=== PATIENT | female | born 1935 | race Caucasian/White ===

== ENCOUNTER 2025-07-06 12:07 | Outpatient (CLI) | payer MEDICARE, SELFPAY ==
--- OUTSIDE RECORDS SUMMARY | 2025-04-04 06:00 | XMS_ITS ---
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 Ear Wax Removal. * Medical History: Objective: * Vitals: Assessment: Plan: * Treatment: * Billing Information: * Visit Code: * Procedure Codes: Care Plan Details* * Electronic signature of [id number] Provider on 07/08/2025 at 11:11 AM CDT Sign off status: Pending * Provider: 1 8204 Provider Date: 04/04/2025 Generated for Rocio santillan/Abena/eTlarrysmitting on: 11:11 AM CDT
--- OUTSIDE RECORDS SUMMARY | 2025-07-07 11:35 | XMS_ITS | Continuity of Care Document ---
Author Organization [facility] Phone Care Team Providers Care Speed Winder Name Role Phone GRACIELA GRANT Unavailable Unavailable GRACIELA GRANT Primary Attending Unavailable GRACIELA GRANT Admitting Unavailable CANDIS BUSBY Primary Care ALLERGIES AND ADVERSE REACTIONS ALLERGIES AND ADVERSE REACTIONS Code System Allergy Substance Adverse Reaction Date Reaction (Severity) Comment Status Reported By Updated By 7984 RXNorm PENICILLIN Adverse reaction to substance (Moderate) numbness active [id number] on July 07, 2025 12:58:[place] [address] RXNorm LEVAQUIN Adverse reaction to substance makes her feel funny active [id number] on July 07, 2025 12:58:51 PM UT FAMILY HISTORY RELATION: Father Status: Cause of : Congestive heart failure Age at : 65 SNOMED-CT Diagnosis Age At Onset [id number] Congestive heart failure RELATION: Mother Status: Cause of : Unknown procedure Age at : 85 SNOMED-CT Diagnosis Age At Onset [id number] Essential hypertension RESULTS Patient: REMA Jeronimo Date of : October [birth year] LABORATORY RESULTS ORDER 100: CBC AUTO W DIFF ( LOINC: 99521-3) ORDER DATE: July 07, 2025 12:57:00 PM UT Specimen Source: Whole Blood Specimen Type: Whole blood s ample PERFORMING LAB: [address] [id number] Result Comment: Final Result Date: July 07, 2025 1:26:00 PM UT (TECH: [place]) LOINC TEST FLAG RESULT REFERENCE RANGE UPDA JIMI BY 6690-2 Leukocytes [#/volume] in Blood by Automated count N 11.1 10^3/uL 4.5 10^3/uL - 11.5 10^3/uL July 07, 2025 1:26:00 PM UTC ([employer]) 789-8 Erythrocytes [#/volume] in Blood by Automated count N 4.35 10^6/uL 4.25 10^6/uL - 5.57 10^6/uL July 07, 2025 1:26:00 PM UTC ([employer]) 718-7 Hemoglobin [Mass/volume] in Blood N 12.4 g/dL 12.0 g/dL - 15.7 g/dL July 07, 2025 1:26:00 PM UTC ([employer]: [employer]) 98060-6 Hematocrit [Volume Fraction] of Blood N 38.6 % 36.0 % - 47.0 % July 07, 2025 1:26:00 PM UTC ([employer]) 787-2 Erythrocyte mean corpuscular volume [Entitic volume] by Automated count N 88.7 fl 80 fl - 95 fl July 07, 2025 1:26:00 PM UTC ([employer]: [employer]) 75372-1 Erythrocyte mean corpuscular hemoglobin [Entitic mass] in Blood from Fetus by Automated count N 28.5 pg 27.0 pg - 34.0 pg July 07, 2025 1:26:00 PM UTC ([employer]: [employer]) 69125-9 Erythrocyte mean corpuscular hemoglobin concentration [Mass/volume] in Blood from Fetus by Automated count N 32.1 g/dL 32.0 g/dL - 36.0 g/dL July 07, 2025 1:26:00 PM UTC ([employer]: [employer]) 01626-0 Platelets [#/volume] in Blood N 153 10^3/uL 150 10^3/uL - 450 10^3/uL July 07, 2025 1:26:00 PM UTC ([employer]: [employer]) 12886-3 Erythrocyte distribution width [Ratio] N 14.0 % 12.3 % - 15.1 % July 07, 2025 1:26:00 PM UTC (TECH: [employer]) 25856-8 Platelet mean volume [Entitic volume] in Blood by Automated count N 9.1 fl 7.4 fl - 10.4 fl July 07, 2025 1:26:00 PM UTC (TECH: [employer]) 94270-2 Granulocytes/100 leukocytes in Blood by Automated count H 86.1 % 40 % - 75 % July 07, 2025 1:26:00 PM UTC (TECH: [employer]) 736-9 Lymphocytes/100 leukocytes in Blood by Automated count L 4.3 % 15 % - 57 % July 07, 2025 1:26:00 PM UTC (TECH: [employer]) 5905-5 Monocytes/100 leukocytes in Blood by Automated count N 9.3 % 4.0 % - 12.0 % July 07, 2025 1:26:00 PM UTC (TECH: [employer]M) 713-8 Eosinophils/100 leukocytes in Blood by Automated count N 0.0 % 0.0 % - 4.0 % July 07, 2025 1:26:00 PM UTC (TECH: [employer]) 706-2 Basophils/100 leukocytes in Blood by Automated count N 0.1 % 0.0 % - 1.0 % July 07, 2025 1:26:00 PM UTC (TECH: [employer]) 76557-1 Immature granulocytes [#/volume] in Blood N 0.2 % 0.0 % - 0.8 % July 07, 2025 1:26:00 PM UTC (TECH: [employer]) 77606-7 Granulocytes [#/volume] in Blood by Automated count N 9.57 10^3/uL July 07, 2025 1:26:00 PM UTC (TECH: [employer]) 731-0 Lymphocytes [#/volume] in Blood by Automated count N 0.48 10^3/uL July 07, 2025 1:26:00 PM UTC (TECH: [employer]M) 742-7 Monocytes [#/volume] in Blood by Automated count N 1.03 10^3/uL July 07, 2025 1:26:00 PM UTC (TECH: [employer]) 711-2 Eosinophils [#/volume] in Blood by Automated count N 0.00 10^3/uL July 07, 2025 1:26:00 PM UTC (TECH: [employer]) 704-7 Basophils [#/volume] in Blood by Automated count N 0.01 10^3/uL July 07, 2025 1:26:00 PM UT (TECH: [employer]) 79520-5 Immature granulocytes [#/volume] in Blood N 0.02 10^3/uL July 07, 2025 1:26:00 PM UT (TECH: [employer]) 29504-0 Manual differential performed [Presence] in Blood N NO July 07, 2025 1:26:00 PM UTC (TECH: [employer]) ORDER 200: COMP METABOLIC PA BRANDEE (LOINC: 57232-5) ORDER DATE: July 07, 2025 12:57:00 PM UTC Specimen Source: Serum/Plasm a Specimen Type: Acellular blo od (serum or plasma) specimen PERFORMING LAB: [address] [id number] Result Comment: Final Result Date: July 07, 2025 1:38:00 PM UT (TECH: [employer]) LOINC TEST FLAG RESULT REFERENCE RANGE UPDA JIMI BY 2951-2 Sodium [Moles/volume ] in Serum or Plasma N 136 mmol/L 136 mmol/L - 145 mmol/L July 07, 2025 1:38:00 PM UTC (TECH: [employer]) 2823-3 Potassium [Moles/volume] in Serum or Plasma L 3.3 mmol/L 3.5 mmol/L - 5.1 mmol/L July 07, 2025 1:38:00 PM UT (TECH: [employer]) 2075-0 Chloride [Moles/volu me] in Serum or Plasma N 98 mmol/L 98 mmol/L - 107 mmol/L July 07, 2025 1:38:00 PM UTC (TECH: [employer]) 8-9 Carbon dioxide, tota l [Moles/volume] in Serum or Plasma N 29 mmol/L 21 mmol/L - 32 mmol/L July 07, 2025 1:38:00 PM UT (TECH: [employer]) 63577-5 Anion gap 3 in Serum or Plasma N 9.0 July 07, 2025 1:38:00 PM UT (TECH: [employer]) 2345-7 Glucose [Mass/volume ] in Serum or Plasma H 114 mg/dL 70 mg/dL - 110 mg/dL July 07, 2025 1:38:00 PM UTC (TECH: [employer]) 3094-0 Urea nitrogen [Mass/volume] in Serum or Plasma N 17 mg/dL 7 mg/dL - 18 mg/dL July 07, 2025 1:38:00 PM UT (TECH: [employer]) 2160-0 Creatinine [Mass/volume] in Serum or Plasma N 0.9 mg/dL 0.6 mg/dL - 1.0 mg/dL July 07, 2025 1:38:00 PM UTC (TECH: [employer]) 3097-3 Urea nitrogen/Creatinine [Mass Ratio] in Serum or Plasma N 18.9 9 - July 07, 2025 1:38:00 PM UTC (TECH: [employer]) 13513-0 Glomerular filtratio n rate/1.73 sq M.predicted by Creatinine-based formula (MDRD) N 61 mL/min >60 July 07, 2025 1:38:00 PM UT (TECH: [employer]) 65029-8 Osmolality of Serum or Plasma by calculated by sum of electrolytes N 286 mosm/kg 275 mosm/kg - 301 mosm/kg July 07, 2025 1:38:00 PM UT (TECH: [employer]) 2885-2 Protein [Mass/volume ] in Serum or Plasma N 7.3 g/dL 6.4 g/dL - 8.2 g/dL July 07, 2025 1:38:00 PM UT (TECH: [employer]) 1751-7 Albumin [Mass/volume ] in Serum or Plasma L 3.2 g/dL 3.4 g/dL - 5.0 g/dL July 07, 2025 1:38:00 PM UT (TECH: [employer]) 02788-2 Calcium [Mass/volume ] in Serum or Plasma N 8.9 mg/dL 8.5 mg/dL - 10.1 mg/dL July 07, 2025 1:38:00 PM UT (TECH: [employer]) 63051-4 Calcium [Mass/volume ] corrected for total protein in Serum or Plasma N 9.5 mg/dL 8.5 mg/dL - 10.1 mg/dL July 07, 2025 1:38:00 PM UT (TECH: [employer]) 1975-2 Bilirubin.total [Mass/volume] in Serum or Plasma N 0.7 mg/dL 0.4 mg/dL - 1.5 mg/dL July 07, 2025 1:38:00 PM UTC (TECH: [employer]) 1920-8 Aspartate aminotransferase [Enzymatic activity/volume] in Serum or Plasma N 18 U/L 15 U/L - 37 U/L July 07, 2025 1:38:00 PM UTC (TECH: [employer]) 1742-6 Alanine aminotransferase [Enzymatic activity/volume] in Serum or Plasma N 15 U/L 12 U/L - 78 U/L July 07, 2025 1:38:00 PM UTC (TECH: [employer]) 6768-6 Alkaline phosphatase [Enzymatic activity/volume] in Serum or Plasma N 56 U/L 53 U/L - 141 U/L July 07, 2025 1:38:00 PM UTC (TECH: [employer]) ORDER 300: UA AND MICRO/CULT IF INDICATED (LOINC: 31557-4) ORDER DATE: July 07, 2025 12:57:00 PM UTC Specimen Source: URINE Specimen Type: Urine specime n PERFORMING LAB: [address] [id number] Result Comment: Final Result Date: July 07, 2025 1:44:00 PM UTC (TECH: [employer]) LOINC TEST FLAG RESULT REFERENCE RANGE UPDA JIMI BY 5778-6 Color of Urine N yellow YELLOW Octob 2024 1:44:00 PM UTC (TECH: [employer]) 5767-9 Appearance of Urine N SL.HAZY CLEAR July 07, 2025 1:44:00 PM UTC (TECH: [employer]) 5792-7 Glucose [Mass/volume ] in Urine by Test strip N NORM NORMAL June 192024 1:44:00 PM UTC (TECH: [employer]) 57987-4 Bilirubin.total [Mass/volume] in Urine by Automated test strip N NEGATIVE NEGATIVE July 07, 2025 1:44:00 PM UTC (TECH: [employer]) 5797-6 Ketones [Mass/volume ] in Urine by Test strip N NEGATIVE NEGATIVE June 192024 1:44:00 PM UTC (TECH: [employer]) 2965-2 Specific gravity of Urine N 1.015 1.005 - 1.035 July 07, 2025 1:44:00 PM UTC (TECH: [employer]) 48849-1 Erythrocytes [#/volu me] in Urine by Automated test strip N 25 (1+) /mcL NEGATIVE July 07, 2025 1:44:00 PM UTC (TECH: [employer]) 66662-3 pH of Urine by Automated test strip N 6.00 5.0 - 7.5 July 07, 2025 1:44:00 PM UTC (TECH: [employer]) 65580-2 Protein [Presence] i n Urine by Test strip N 100 (2+) mg/dL NEGATIVE July 07, 2025 1:44:00 PM UTC (TECH: [employer]) 14393-2 Urobilinogen [Mass/volume] in Urine by Automated test strip N NORM NORMAL July 07, 2025 1:44:00 PM UTC (TECH: [employer]) 30727-9 Nitrate [Presence] i n Urine N NEGATIVE NEGATIVE July 07, 2025 1:44:00 PM UTC (TECH: [employer]) 34257-3 Leukocytes [#/volume ] in Urine by Test strip N 500 (2+) /mcL NEGATIVE June 192024 1:44:00 PM UTC (TECH: [employer]) 25399-9 Other elements in Ur ine sediment N YES July 07, 2025 1:44:00 PM UTC (TECH: [employer]) 34197-7 Microscopic observat ion [Identifier] in Urine sediment by Light microscopy N YES July 07, 2025 1:44:00 PM UTC (TECH: [employer]) 67941-5 Erythrocytes [#/area ] in Urine sediment by Microscopy high power field N 1-5 0-3 July 07, 2025 1:44:00 PM UTC (TECH: [employer]) 5821-4 Leukocytes [#/area] in Urine sediment by Microscopy high power field >30 NONE SEEN July 07, 2025 1:44:00 PM UTC (TECH: [employer]) 72092-7 Epithelial cells.squamous [#/area] in Urine sediment by Microscopy high power field N 5-10 NONE SEEN July 07, 2025 1:44:00 PM UTC (TECH: [employer]) 5769-5 Bacteria [#/area] in Urine sediment by Microscopy high power field N TRACE NONE SEEN July 07, 2025 1:44:00 PM UTC (TECH: [employer]) 90852-1 Epithelial cells.jono al [#/area] in Urine sediment by Microscopy high power field N OCCASIONAL NONE SEEN July 07 1:44:00 PM UT (TECH: JEANNIE) LABORATORY NARRATIVE RESULTS Information is not available RADIOLOGY RESULTS Information is not available PATHOLOGY NARRATIVE RESULTS Information is not available MICROBIOLOGY RESULTS No Micro Labs/Results Exist for Patient BLOOD ADMIN RESULTS Information is not available TREATMENT PLAN DISCHARGE MEDICATIONS Status RXNORM Medication Dose Route Frequency Dates Comments U pdated By Patient discharge medication information is not available. PATIENT OPEN ORDERS Code System Descripti on Frequency Occurrenc es Priority Category Start Date Ordering Physician Updated By 630-4 DENISHA Bacteria identifie d in Urine by Culture ONE TIME 0 Routine July 07, 2025 1:43:00 PM UT RUDY Gallagher MD DSRULE on July 07, 2025 1:43:00 PM UT SCHEDULED PROCEDURES Code System Description Status Scheduled Date Upd ated By Patient scheduled procedure information is not available. MEDICATIONS HOME MEDICATIONS Status RXNORM NDC Medication Dose Route Frequency Dates Comments Reported By Updated By Active [id number] 446016 05236 aspirin 81 mg capsule 0.0 ORAL Last Dose: [id number] on July 07, 2025 12:58:50 PM UT Active [employer]Te [employer] metoprolol succinate oral unknown 0.0 Last Dose: [id number] on July 07, 2025 12:58:51 PM UT DISCHARGE MEDICATIONS Status RXNORM NDC Medication Dose Route Frequency Dates Dis pense Data Comments Physician Updated By No Discharge Medication Info rmation Available INPATIENT MEDICATIONS Status RXNORM NDC Medication Dose Route Frequency Rat e Quantity Dates Indication Dispense Data Comments Physician Updated By Cody inued [id number] 3287 9754 201 cefTRIAXone (ROCEPHIN) 1 GM SOLR 1.0 GM ONE TIME ONLY Start: Octobe r 2024 1:29:0 0 PM UTC End: Octobe r 2024 1:29:0 0 PM UTC RUDY Gallagher MD INTERFAC ED on July 07, 2025 1:29:00 PM UT Discont inued [id number] 4143 0360 411 sodium chloride MINI-BAG PLUS 0.9 % 100 ML MBP KELSIE 100.0 ML INTRAV ENOUS ONE TIME ONLY Start: Octobe r 2024 1:29:0 0 PM UTC End: Octobe r 2024 1:29:0 0 PM UTC RUDY Gallagher MD INTERFAC ED on July 07, 2025 1:29:00 PM UTC Discont inued 9727229 2385 5531 911 KLOR-CON M20 20 MEQ TBCR 20.0 MEQ ORAL ONE TIME ONLY Start: Octobe r 2024 2:25:0 0 PM UTC End: Octobe r 2024 2:25:0 0 PM UTC RUDY Gallagher MD INTERFAC ED on July 07, 2025 2:24:00 PM UTC SOCIAL HISTORY SOCIAL HISTORY - Smoking Status SNOMED-CT Social History Element Description Effective Dates Offered Cessation Comment Updated By [id number] Current Tobacco smoking status Never Smoked [id number] on July 07, 2025 12:59:16 PM UTC SOCIAL HISTORY - Gender Sex: Female SOCIAL HISTORY - Status : status i nformation is not available Intention in Next Year: intention information is not available SOCIAL HISTORY - Assessments Code System Description Status Date Value of Assessment Updated By Comment Assessment Information is no t available SOCIAL HISTORY - [place] Affiliation [place] information is not av ailable SOCIAL HISTORY - Legal Sex Legal Sex information is not available SOCIAL HISTORY - Sexual Behavior Sexual Orientation Gender Identity SNOMED-CT Description SNO MED -CT Description Activity Level No of Partners Partner Type UpdatedBy Information is not available SOCIAL HISTORY - Occupation Occupation information is no t available VITAL SIGNS PATIENT VITAL SIGNS This section displays the mo st recent value for each vital sign as of July 07, 2025 3:35:02 PM UT Loinc Code Vital Sign Activity Date Result Updated By 8310-5 Body temperature July 07 12:37:00 PM UTC 98.3 [degF] 58435-3 Body weight Measured July 07, 2025 12:56:40 PM UTC 53.6 kg (118.0 lb) [id number] on July 07, 2025 12:56:40 PM UT 8462-4 Diastolic blood pressure July 07, 2025 2:32:00 PM UTC 64.0 mm[Hg] 8867-4 Heart rate July 07, 2025 2:32:00 PM UTC 69 /min 44433-2 Oxygen saturation in Arterial blood by Pulse oximetry July 07, 2025 2:32:00 PM UTC 98.0 % 9279-1 Respiratory rate July 07 2:32:00 PM UTC 18 /min 8480-6 Systolic blood pressure July 07, 2025 2:32:00 PM UTC 121.0 mm[Hg] PEDIATRIC GROWTH CHART - VITAL SIGNS This section displays Head C ircumference Percentile, Weight for Length Percentile and BMI Percentile Loinc Code Pediatric Measure Age (Months) Result Updat ed By No Pediatric Growth Chart Pe rcentile Information Available. HEALTH CONCERNS Problems Concern Status Health Concern problem infor mation not available. Smoking Status Status Years Used Consumed packs p er day Health Concern smoking histo ry information not available. Family History Concern Status Health Concern family histor y information not available. ENCOUNTERS ENCOUNTER INFORMATION Reason for Visit WEAKNESS Admission July 07, 2025 12:35:[address] [address] Discharge July 07, 2025 2:35:00 PM [facility] DISCHARGED TO HOME OR SELF CARE ENCOUNTER DIAGNOSES Notes information is not sho ilable. Code System Diagnosis Onset Date Diagnosis information is not available. ABSTRACT DIAGNOSES Code System Diagnosis Updated By Abatement Date Abstract Diagnosis informati on is not available. CARE TEAM Care Speed Winder Role GRACIELA GRANT Referring GRACIELA GRANT Primary Attending GRACIELA GRANT Admitting CANDISSHANEKA DASYulissa Primary Care CARE TEAM CARE computer field technician Role on Team Location Telecom Status Start Date End Petros e Updated By RUDY GARCIA Referring normal July 07, 2025 12:58:19 PM [facility] July 07, 2025 12:58:19 PM [facility] [id number] on July 07, 2025 12:58:19 PM [facility] RUDY Gallagher MD, MD Referring normal July 07, 2025 12:58:19 PM [facility] July 07, 2025 2:35:00 PM [facility] [id number] on July 07, 2025 12:58:19 PM [facility] RUDY GARCIA Attending normal July 07, 2025 12:58:18 PM [place] July 07, 2025 12:58:18 PM [facility] [id number] on July 07, 2025 12:58:19 PM [facility] RUDY Gallagher MD, MD Attending normal July 07, 2025 12:58:18 PM [facility] July 07, 2025 2:35:00 PM [facility] [id number] on July 07, 2025 12:58:19 PM [facility] RUDY GARCIA Admitting normal July 07, 2025 12:58:18 PM UTC July 07, 2025 12:58:18 PM UTC [id number] on July 07, 2025 12:58:19 PM UTC RUDY Gallagher MD, MD Admitting normal July 07, 2025 12:58:18 PM UTC July 07, 2025 2:35:00 PM UTC [id number] on July 07, 2025 12:58:19 PM UTC KEHINDE Virk MD, PHY PCP normal July 07, 2025 12:35:34 PM UTC July 07, 2025 2:35:00 PM UTC [id number] on July 07, 2025 12:58:19 PM UTC
--- OUTSIDE RECORDS SUMMARY | 2025-07-08 12:11 | XMS_ITS | Clinical Summary ---
Author Organization [facility] Address [address] [place] [address] Care Team Providers Care Wringer And Setter Name Role Phone Alexey Hough MD Primary Care Provider [phone] Allergies Active Allergy Reactions Criticality Noted Date Comments Levofloxacin Other - please docum ent in the comment field,Unknown - Patient states they do not know rxn details Medium 06/24/2020 Patient reports inability to walk and felt out of it Penicillins Other - please docum ent in the comment field,Unknown - Patient states they do not know rxn details Medium 09/06/2018 Facial numbness Medications cyanocobalamin (Vitamin B-12) 100 MCG tablet 09/06/2018 Acti ve Pain Reliever Extra Strength 500 MG tablet TAKE 2 TABLETS BY MOUTH EVERY 8 HOURS 05/25/2022 Active apixaban (Eliquis) 5 MG tablet Take 1 tablet by mouth 2 (two) times a day. 11/26/2020 Active calcium carbonate (Os-Evens) 1250 (500 Ca) MG tablet 09/06/2018 Active metoprolol succinate XL (Toprol-XL) 100 MG 24 hr tablet Take 0.5 tablets by mouth 1 (one) time each day. 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), bilater al 12/15/2022 Esotropia of both eyes 12/15/2022 Hypertropia of left eye 12/15/2022 Arthritis of right knee 05/26/2022 Elevated hemoglobin A1c 05/26/2022 Hypertension 05/26/2022 Status post total right knee replacement 022 Posterior vaginal wall prolapse 09/14/2018 Prolapse of anterior vaginal wall 09/14/2018 Prolapse of vaginal vault after hysterectomy Female bladder prolapse 09/06/2018 Resolved Problems Problem Noted Date Diagnosed Date Resolved Date Other localized visual field defect, bilateral 12/15/2022 06/09/2025 Postoperative pain 05/27/2022 Arthralgia of right knee 06/24/2020 Family History Medical History Relation Name Comments Esophageal cancer Brother 1 Prostate cancer Brother 2 Esophageal cancer Other 1 Prostate cancer Other 2 Relation Name Status Comments Brother 1 Brother 2 Other 1 Other 2 Social History Tobacco Use Types Packs/Day Years Used Date Smoking Tobacco: Never Tobacco Cessation:Counseling Given: Not Answered Alcohol Use Standard Drinks/Week Comments No 0 (1 standard drink = 0.6 oz pur e alcohol) Comments Unknown Sex and Gender Information Value Date Recorded Sex Assigned at Not on file Legal Sex Female 8:28 PM EDT Gender Identity Not on file Sexual Orientation Not on file Last Filed Vital Signs Vital Sign Reading Time Taken Comments Blood Pressure 168/87 01/26/2021 1:13 PM EDT Pulse 69 01/26/2021 1:13 PM EDT Temperature - - Respiratory Rate - - Oxygen Saturation - - Inhaled Oxygen Concentration - - Weight 65.8 kg (145 lb 1 oz) 01/26/2021 1:13 PM EDT Height 171.5 cm (5' 7.5 ) 01/26/2021 1:13 PM EDT Body Mass Index 22.38 01/26/2021 1:13 PM EDT Plan of Treatment Health Maintenance Due Date Last Done Comments [facility]-Bone Density Scan 1936 [facility]-Depression Screening 1936 [facility]-Medicare Annual Wellness (AWV) 1936 [facility]-Infant/Child/Adol SDOH Screenings 1936 [facility]- SDOH Screenings 1954 [facility]-Adult SDOH Screenings 1954 [facility]-DTaP,Tdap,and Td Vaccines (1 - Tdap) 1955 [facility]-Zoster Vaccines (1 of 2) 1986 [facility]-RSV Vaccine: 60+ Years or (1 - 1-dose 75+ series) 2011 [facility]-Pneumococcal Vaccine: 50+ Years (2 of 2 - PCV) 08/18/2021 08/18/2020 [id number] Vaccine ( - 2024- season) 2025 08/05/2022, 12/30/2021, 06/22/2021, Additional history exists [facility]-Influenza Vaccine (#1) 2025 06/03/2019 [facility]-Diabetes: Hemoglobin A1C Discontinued 10/29/2022, 05/13/2022 HPV Vaccines Aged Out No longer eligi ble based on patient's age to complete this topic [facility]-HIB Vaccines Aged Out No longer e ligible based on patient's age to complete this topic [facility]-Hepatitis A Vaccines Aged Out No longer eligible based on patient's age to complete this topic [facility]-IPV Vaccines Aged Out No longer e ligible based on patient's age to complete this topic [facility]-Rotavirus Vaccines Aged Out No lo nger eligible based on patient's age to complete this topic Insurance Care Teams Wringer And Setter Relationship Specialty Start Date End Date Alexey Hough MD [address] [place], [place] [id number] PCP - General 01/30/21
--- OUTSIDE RECORDS SUMMARY | 2025-07-08 12:11 | XMS_ITS | Clinical Summary ---
[facility] Address [address] [place] [address] Care Team Providers Care Assistant Store Manager Name Role Phone David Gongora MD Primary Care Provider Allergies Active Allergy Reactions Criticality Noted Date Comments Levofloxacin Mental Status Change Medium 05/13/2022 Patient reports inability to walk and felt out of it Penicillins Other (See Comments) Medium 05/13/2022 Facial numbness Medications Brgbndr-Yvdoxcluq-W itamin D (CALCIUM 1200+D3 PO) Take 1 tablet by mouth Daily. Active vitamin B-12 (CYANOCOBALAMIN) 1000 MCG tablet Take 1 tablet by mouth Daily. Active metoprolol succinate XL (TOPROL-XL) 100 MG 24 hr tablet Take 0.5 tablets by mouth Every Night. 10/13/19 23 Active acetaminophen (TYLENOL) 500 MG tablet Take 2 tablets by mouth Every 6 (Six) Hours As Needed for Mild Pain. Active traMADol (ULTRAM) 50 MG tabletIndications:S tatus post total right knee replacement Take 1 tablet by mouth Every 6 (Six) Hours As Needed for Moderate Pain. 03/10/20 23 Active oxyCODONE (Roxicodone) 5 MG immediate release tabletIndications:S tatus post total right knee replacement Take 1 tablet by mouth Every 4 (Four) Hours As Needed for Moderate Pain. 0 03/10/20 23 Active ondansetron (Zofran) 4 MG tablet Take 1 tablet by mouth Every 8 (Eight) Hours As Needed for Nausea or Vomiting. 03/10/20 Active lactobacillus acidophilus (RISAQUAD) capsule capsule Take 1 capsule by mouth Daily. 03/10/20 Active pantoprazole (PROTONIX) 40 MG EC tablet Take 1 tablet by mouth Every 12 (Twelve) Hours. 03/24/20 Active meloxicam (MOBIC) 15 MG tablet MELOXICAM 15 MG TABS Active Colace 100 MG capsule TAKE 1-2 CAPSULE DAILY NEEDED 03/08/20 Active Cholecalciferol (Vitamin D3) 50 MCG (2000 UT) tablet Take 1 tablet by mouth Daily. 03/08/20 Active traMADol (ULTRAM) 50 MG tabletIndications:H istory of arthroplasty of right knee Take 1 tablet by mouth Every 4 (Four) Hours As Needed for Moderate Pain. 60 tablet 05/22/20 Active apixaban (ELIQUIS) 2.5 MG tablet tabletIndications:A trial Fibrillation - requiring full anticoagulation Take 1 tablet by mouth 2 (Two) Times a Day. 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 No new symptoms to necessitate testing. Recent surgery went well from a cardiac standpoint. Okay to stop Eliquis for 3 days prior. Up to 5 days if necessary. Assessment & Plan (12/22/2022 1:21 PM EDT): Recent echo reviewed. Normal ejection fraction. No new symptoms to necessitate testing. Recent surgery went well from a cardiac standpoint. Okay to stop Eliquis for 3 days prior. Up to 5 days if necessary. Paroxysmal atrial fibrillation 12/22/2022 Assessment & Plan (04/01/2023 4:25 PM EDT): Infrequent episodes, in NSR today. Continue Eliquis and Metoprolol. Assessment & Plan (12/22/2022 1:22 PM EDT): Infrequent episodes. Continue current medication. Postoperative pain 05/27/2022 Arthritis of right knee 05/26/2022 Status post total right knee replacement 022 Hypertension 05/26/2022 Elevated hemoglobin A1c 05/26/2022 Immunizations Immunization Administration Dates Next Due Fluzone High-Dose 65+YRS 08/18/2020 Influenza, Unspecified 06/03/2019 Pneumococcal Polysaccharide (PPSV23) 08/18/2020 Family History Medical History Relation Name Comments Heart disease Father Heart disease Mother Relation Name Status Comments Brother 1 three Alive Brother 2 three Father Mother Social History Tobacco Use Types Packs/Day Years Used Date Smoking Tobacco: Never Smokeless Tobacco: Never Tobacco Cessation:Counseling Given: No Alcohol Use Standard Drinks/Week Comments Never 0 (1 standard drink = 0.6 oz pur e alcohol) [facility] Utilities Answer Date Recorded In the past 12 months has [employer], gas, oil, or water [employer] threatened to shut off services in your home? No 08/10/2024 AUDIT-C Answer Date Recorded Q1: How often do you have a drink containing alcohol? Never 08/10/2024 Q2: How many drinks containi ng alcohol do you have on a typical day when you are drinking? Patient does not drink Q3: How often do you have si x or more drinks on one occasion? Never 08/10/2024 Exercise Vital Sign Answer Date Recorde d On average, how many days pe r week do you engage in moderate to strenuous exercise (like a brisk walk)? 0 days 08/10/2024 On average, how many minutes do you engage in exercise at this level? 0 min 08/10/2024 Hunger Vital Sign Answer Date Recorded Within the past 12 months, y ou worried that your food would run out before you got the money to buy more. Never true 08/10/20 24 Within the past 12 months, t he food you bought just didn't last and you didn't have money to get more. Never true 08/10/2024 PRAPARE - Transportation Answer Date Re corded In the past 12 months, has l ack of transportation kept you from medical appointments or from getting medications? No 07/21 In the past 12 months, has l ack of transportation kept you from meetings, work, or from getting things needed for daily living? No 08/10/2024 Abuse Screen Answer Date Recorded Feels Unsafe at Home or Work/School no 08/10/2024 Feels Threatened by Someone no 07/21 Does Anyone Try to Keep You From Having Contact with Others or Doing Things Outside Your Home? no 08/10/2024 Physical Signs of Abuse Present no 08/10/2024 Housing Stability Answer Date Recorded Current Living Arrangements home 07/21 Potentially Unsafe Housing Conditions none 08/10/2024 Family and Community Support Answer Petros e Recorded If for any reason you need h elp with day-to-day activities such as bathing, preparing meals, shopping, managing finances, etc., do you get the help you need? I get all the help I need 08/10/2024 Lonely or Isolated Not on file 08/10/2024 Employment Answer Date Recorded Do you want help finding or keeping work or a job? I do not need or want help 08/10/2024 Disabilities Answer Date Recorded Difficulty Concentrating, Remembering or Making Decisions no 08/10/2024 Difficulty Managing Errands Independently yes 08/10/2024 Education Answer Date Recorded Do you want help with school or training? For example, starting or completing job training or getting a high school diploma, GED or equivalent No 08/10/2024 Preferred Language Serbian 08/10/2024 Comments No Sex and Gender Information Value Date Recorded Sex Assigned at Not on file Legal Sex Female 10:06 AM EDT Gender Identity Not on file Sexual Orientation Not on file Last Filed Vital Signs Vital Sign Reading Time Taken Comments Blood Pressure 126/71 08/12/2024 12:30 PM EST Pulse 74 08/12/2024 12:30 PM EST Temperature 36.2 C (97.1 F) 08/12/2024 12:30 PM EST Respiratory Rate 16 08/12/2024 12:30 PM EST Oxygen Saturation 98% 08/12/2024 12:30 PM EST Inhaled Oxygen Concentration - - Weight 56.7 kg (125 lb) 08/11/2024 11:36 AM EST Height 170.2 cm (5' 7 ) 08/11/2024 11:36 AM EST Body Mass Index 19.58 08/11/2024 11:36 AM EST Plan of Treatment Health Maintenance Due Date Last Done Comments TDAP/TD VACCINES (1 - Tdap) 1955 ZOSTER VACCINE (1 of 2) 1986 RSV Vaccine - Adults (1 - 1- dose 75+ series) 2011 Pneumococcal Vaccine 50+ (2 of 2 - PCV) 08/18/2021 08/18/2020 ANNUAL WELLNESS VISIT 04/19/2022 INFLUENZA VACCINE 04/19/2025 07/19/2024, , 08/18/2020, Additional history exists COVID-19 Vaccine (8 - Pfizer risk 2023-) 05/20/2025 06/07/2024, 08/04/2023, 08/05/2022, Additional history exists DXA SCAN 06/13/2026 06/13/2024 Medical Devices Implanted Type [employer] Head Device Identifier Shelf Expiration Date Model / Serial / Lot Dev Contrl Tiss Stratafix Spiral Pdo Bidir 1 [id number] - [id number] Implanted:Qty : 1 on 05/26/2022 by Cameron Soto MD at [facility] Implant Right: Knee [employer] J [employer] J 02/16/2027 [id number] / / [id number] Cmt Bone Simplex/P Full Dose 10/Pk - [id number] Implanted:Qty : 2 on 05/26/2022 by Cameron Soto MD at [facility] Implant Right: Knee [employer] W[employer] 08/31/2024 [id number] / / [id number] Pat Triath Asym X3 03k31hy - [id number] Implanted:Qty : 1 on 05/26/2022 by Cameron Soto MD at [facility] Implant Right: Knee [employer] [id number] 03/29/2027 [id number] / / [id number] Comp Fem Triath Ps Cmt No3 Rt - [id number] Implanted:Qty : 1 on 05/26/2022 by Cameron Soto MD at [facility] Implant Right: Knee [employer] [id number] 02/25/2026 [id number] / / [id number] Insrt Tib/Kn Triath Ps A/Poly Sz4 9mm - [id number] Implanted:Qty : 1 on 05/26/2022 by Cameron Soto MD at [facility] Implant Right: Knee [employer] W[employer] [id number] 07/02/2024 [id number] / / [id number] Totl Kn Med Demand Vicky - [id number] Implanted:Qty : 1 on 05/26/2022 by Cameron Soto MD at [facility] Implant [employer] CAPKNTOTLME [id number] / / Dev Contrl Tiss Stratafix Spiral Pdo Bidir 1 [id number] - [id number] Implanted:Qty : 1 on 12/29/2022 by Cameron Soto MD at [facility] Implant Right: Knee [employer] J [employer] J 08/18/2027 [id number] / / [id number] Insrt Tib/Kn Triathlon Condy/Stbl A/Poly Sz4 13mm - [id number] Implanted:Qty : 1 on 12/29/2022 by Cameron Soto MD at [facility] Implant Right: Knee [employer] 05/18/2027 [id number] / / [id number] Comp Fem Triath Cr No3 Rt - [id number] Implanted:Qty : 1 on 12/29/2022 by Cameron Soto MD at [facility] Implant Right: Knee [employer] 10/25/2027 [id number] / / [id number] Cmt Bone Simplex/P Full Dose 10/Pk - [id number] Implanted:Qty : 3 on 12/29/2022 by Cameron Soto MD at [facility] Implant Right: Knee [employer] 05/19/2025 [id number] / / [id number] Cmt Bone Simplex/P Full Dose 10/Pk - [id number] Implanted:Qty : 1 on 12/29/2022 by Cameron Soto MD at [facility] Implant Right: Knee [employer] 05/19/2025 [id number] / / [id number] Dev Contrl Tiss Stratafix Spiral Pdo Bidir 1 [id number] - [id number] Implanted:Qty : 1 on 03/09/2023 by Cameron Soto MD at [facility] Implant Right: Knee [employer] JOSTIN [id number] 06/18/2027 [id number] / / [id number] Cmt Bone Simplex/P Tmycin Fdos 10pk - [id number] Implanted:Qty : 1 on 03/09/2023 by Cameron Soto MD at [facility] Implant Right: Knee [employer] [id number] 02/17/2024 [id number] / / [id number] Cmt Bone Simplex/P Tmycin Fdos 10pk - [id number] Implanted:Qty : 1 on 03/09/2023 by Cameron Soto MD at [facility] Implant Right: Knee [employer] 06/18/2024 [id number] / / [id number] Cmt Bone Simplex/P Tmycin Fdos 10pk - [id number] Implanted:Qty : 1 on 03/09/2023 by Cameron Soto MD at [facility] Implant Right: Knee [employer] 06/18/2024 [id number] / / [id number] Cmt Bone Simplex/P Tmycin Fdos 10pk - [id number] Implanted:Qty : 1 on 03/09/2023 by Cameron Soto MD at [facility] Implant Right: Knee [employer] 06/18/2024 [id number] / / [id number] Aug Cone Tib/Kn Triathlon Rev Symm Szb - [id number] Implanted:Qty : 1 on 03/09/2023 by Cameron Soto MD at [facility] Implant Right: Knee [employer] 11/03/2027 [id number] / / [id number] Baseplt Tib Triath Ts No4 - [id number] Implanted:Qty : 1 on 03/09/2023 by Cameron Soto MD at [facility] Implant Right: Knee [employer] W[employer] 10/27/2027 [id number] / / [id number] Stem Fem Triath Cmt 53o31ze - [id number] Implanted:Qty : 1 on 03/09/2023 by Cameron Soto MD at [facility] Implant Right: Knee [employer] W[employer] 01/10/2028 [id number] / / [id number] Ext Stem Triath Kn Totl Cocr Flut 69n17co - [id number] Implanted:Qty : 1 on 03/09/2023 by Cameron Soto MD at [facility] Implant Right: Knee [employer] 09/27/2027 [id number] / / [id number] Aug Fem/Kn Triathlon Totlstbl Dist Sz3 10mm Rt - [id number] Implanted:Qty : 1 on 03/09/2023 by Cameron Soto MD at [facility] Implant Right: Knee [employer] W[employer] [id number] 06/18/2023 [id number] / / [id number] Comp Fem Triath Ts Sz3 Rt - [id number] Implanted:Qty : 1 on 03/09/2023 by Cameron Soto MD at [facility] Implant Right: Knee [employer] WIL [id number] 02/16/2028 [id number] / / [id number] Cone Aug Fem/Kn Triathlon Ts Ctr Lj7kxp2 Rt - [id number] Implanted:Qty : 1 on 03/09/2023 by Cameron Soto MD at [facility] Implant Right: Knee [employer] W[employer] [id number] 08/16/2026 [id number] / / [id number] Aug Fem/Kn Triathlon Totlstbl Dist Sz3 10mm Rt - [id number] Implanted:Qty : 1 on 03/09/2023 by Cameron Soto MD at [facility] Implant Right: Knee [employer] [id number] 05/19/2027 [id number] / / [id number] Aug Fem/Kn Triathlon Rev Post Sz3 5mm - [id number] Implanted:Qty : 1 on 03/09/2023 by Cameron Soto MD at [facility] Implant Right: Knee [employer] WIL [id number] 12/20/2026 [id number] / / [id number] Ext Stem Triath Kn Totl Cocr Flut 11l03ay - [id number] Implanted:Qty : 1 on 03/09/2023 by Cameron Soto MD at [facility] Implant Right: Knee [employer] [id number] 09/23/2027 [id number] / / [id number] Aug Fem/Kn Triathlon Rev Post Sz3 5mm - [id number] Implanted:Qty : 1 on 03/09/2023 by Cameron Soto MD at [facility] Implant Right: Knee [employer] W[employer] [id number] 10/27/2026 [id number] / / [id number] Stem Fem Triath Cmt 40r15wm - [id number] Implanted:Qty : 1 on 03/09/2023 by Cameron Soto MD at [facility] Implant Right: Knee [employer] W[employer] [id number] 11/04/2027 [id number] / / [id number] Plug Bone Restr/Cmt W/Hndl Univ 30mm Adal - [id number] - [id number] Implanted:Qty : 1 on 03/09/2023 by Cameron Soto MD at [facility] Implant Right: Knee [employer] WIL [id number] 09/27/2027 [id number] / [id number] / [id number] Plug Bone Restr/Cmt W/Hndl Univ 24mm - [id number] - [id number] Implanted:Qty : 1 on 03/09/2023 by Cameron Soto MD at [facility] Implant Right: Knee [employer] WIL [id number] 05/10/2027 [id number] / [id number] / [id number] Apr Tib/Kn Triath /2blck Ll/Rm Sz4 10mm - [id number] Implanted:Qty : 1 on 03/09/2023 by Cameron Soto MD at [facility] Implant Right: Knee [employer] WIL [id number] 12/06/2027 [id number] / / [id number] Apr Tib/Kn Triath /lck Rl/Lm Sz4 10mm - [id number] Implanted:Qty : 1 on 03/09/2023 by Cameron Soto MD at [facility] Implant Right: Knee [employer] WIL [id number] 08/04/2027 [id number] / / [id number] Insrt Tib Triath X3 Totl Stbl Sz4 13 - [id number] Implanted:Qty : 1 on 03/09/2023 by Cameron Soto MD at [facility] Implant Right: Knee [employer] WIL [id number] 01/05/2028 [id number] / / [id number] Explanted Type [employer] Head Device Identifier Shelf Expiration Date Model / Serial / Lot Peg Fem Fix Triathlon Dist Mod Pk/2 - [id number] Explanted:Qty: 1 on 05/26/2022 by Cameron Soto MD at [facility] Implant Right: Knee [employer] WIL [id number] 05/03/2027 [id number] / / [id number] Insurance [employer] PPO Advance Directives Documents on File Type Date Recorded 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 LIVING WILL - SCAN 05/30/2022 2:51 PM VEGA NG WILL, BHLEX, * CPR (Attempt to Resuscitate) (Latest Code Status on File) Date Activated Date Inactivated Comments 08/10/2024 2:30 PM 08/12/2024 3:18 PM Question Answer Comments Code Status (Patient has no pulse and is not breathing): CPR (Attempt to Resuscitate) Medical Interventions (Patie nt has pulse or is breathing): Full Support Level Of Support Discussed With: Patient * CPR (Attempt to Resuscitate) Date Activated Date Inactivated Comments 03/09/2023 3:55 PM 03/10/2023 3:20 PM Question Answer Comments Code Status (Patient has no pulse and is not breathing): CPR (Attempt to Resuscitate) Medical Interventions (Patie nt has pulse or is breathing): Full Level Of Support Discussed With: Patient * CPR (Attempt to Resuscitate) Date Activated Date Inactivated Comments 12/29/2022 3:43 PM 01/04/2023 2:09 PM Question Answer Comments Code Status (Patient has no pulse and is not breathing): CPR (Attempt to Resuscitate) Medical Interventions (Patie nt has pulse or is breathing): Full Level Of Support Discussed With: Patient * CPR (Attempt to Resuscitate) Date Activated Date Inactivated Comments 05/26/2022 3:24 PM 05/27/2022 3:35 PM Question Answer Comments Code Status (Patient has no pulse and is not breathing): CPR (Attempt to Resuscitate) Medical Interventions (Patie nt has pulse or is breathing): Full Level Of Support Discussed With: Patient Care Teams Assistant Store Manager Relationship Specialty Start Date End Date David Gongora MD PCP - General Emergency Medicine 05/13/22
--- OUTSIDE RECORDS SUMMARY | 2025-07-08 12:11 | XMS_ITS | Clinical Summary ---
Author Organization [facility] Address [address] [place] [address] Phone Care Team Providers Care Linoleum Tile Layer Name Role Phone Elliot Sanchez MD [ ] Conditions or Problems Problem Name Problem Code Onset Date Status Entry Date Provider Comment Standard Description Annotate Paroxysmal atrial fib 803864475 (SNOMED CT) Active Megan Quijano Paroxysmal atrial flutter Knee, right, subsequent encounter(s), infection/infl ammatory reaction due to internal joint prosthesis T84.53xD (ICD-10-CM) Active Megan Quijano Infection and inflammatory reaction due to internal right knee prosthesis, subsequent encounter Cellulitis of RLE 644989609 (SNOMED CT) Active Megan Quijano Cellulitis of lower limb Benign Essential Hypertension 97423881 (SNOMED CT) Active Megan Quijano Benign hypertension Medications Medication Instructions Start Date Stop Date Generic Name [facility] [place]NOTE 2] Provider TRIAMCINOLONE ACETONIDE 0.1 % CREA Apply 1 a small amount to skin twice a day triamcinolone acetonide [id number] Elliot Sanchez MD CEPHALEXIN 250 MG/5ML SUSR Take Take 10 ml QID by mouth as directed cephalexin 03112446838 Elliot Sanchez MD AMOXICILLIN 500 MG CAPS Take 1 capsule by mouth three times a day amoxicillin 30173888172 Elliot Sanchez MD AMOXICILLIN 500 MG CAPS Take 1 capsule by mouth three times a day amoxicillin 58198053808 Elliot Sanchez MD DOXYCYCLINE HYCLATE 100 MG CAPS 100 mg, Oral, 2 Times Daily doxycycline hyclate 36013538150 Mavis Shepherd MELOXICAM 15 MG TABS 15 mg, Oral, Daily meloxicam 47285283160 Mavis Shepherd ERTAPENEM SODIUM 1 GM SOLR 1gm q 24hrs x 6wks [employer] [facility] [phone] as of 01/17 ertapenem 13741729767 Abi Yen NYSTATIN 098767 UNIT/ML SUSP Take 5 ml by mouth four times a day nystatin 03025349942 Bryan Pyle MD ERTAPENEM SODIUM 1 GM SOLR 1gm q 24hrs x 6wks [employer] [facility] [phone] as of 01/17 ertapenem 11735342533 Abi Yen MELOXICAM 15 MG TABS TAKE 1 TABLET BY MOUTH EVERY DAY meloxicam 21386812718 Alicia Fu COLACE 100 MG CAPS TAKE 1 TO 2 CAPSULES DAILY NEEDED docusate sodium 46400861336 Alicia Mando ERTAPENEM SODIUM 1 GM SOLR 1gm q 24hrs x 6wks [facility] [place]. [phone] ertapenem 01090425257 Abi Yen ELIQUIS 5 MG TABS TAKE 1 TABLET BY MOUTH TWICE DAILY apixaban 56909169880 Brooklyn Garcia METOPROLOL SUCCINATE ER 100 MG [id number] TAKE 1/2 TABLET BY MOUTH EVERY DAY metoprolol succinate 25294594285 Brooklyn Garcia COLACE 100 MG CAPS TAKE 1 TO 2 CAPSULES DAILY NEEDED docusate sodium 48858659287 Brooklyn Garcia OXYCODONE HCL 5 MG TABS TAKE 1 TABLET BY MOUTH EVERY 4 TO 6 HOURS FOR MODERATE PAIN oxycodone 11540523921 Brooklyn Garcia TRAMADOL HCL 50 MG TABS TAKE 2 TABLETS BY MOUTH EVERY 6 HOURS FOR BREAK THROUGH PAIN tramadol 83552553197 Brooklyn Garcia ONDANSETRON HCL 4 MG TABS TAKE 1 TABLET BY MOUTH EVERY 6 HOURS NEEDED FOR NAUSEA ondansetron hcl 48837210253 Brooklyn Garcia MELOXICAM 15 MG TABS TAKE 1 TABLET BY MOUTH EVERY DAY meloxicam 99677708554 Brooklyn Garcia Lactobacillus acidophilus unspecified unspecified 1 capsule, Oral, 2 Times Daily lactobacillus acidophilus Brooklyn Garcia ACETAMINOPHEN 500 MG TABS 1,000 mg, Oral, Every 6 Hours PRN acetaminophen 39995718402 Brooklyn Garcia CALCIUM 500/D 500-5 MG-MCG TABS 1 tablet, Oral, Daily calcium carbonate-vitami n d3 55344426778 Brooklyn Garcia VITAMIN B-12 1000 MCG TABS 1,000 mcg, Oral, Daily cyanocobalamin (vitamin b-12) 60233078103 Brooklyn Garcia Medications Administered No information available. Allergies, Adverse Reactions, Alerts Allergy Name Reaction Description Start Date Severity Statu s Provider PENICILLINS Facial numbness Moderate Active Oracio weinerdon PAULAAQRAUL mental status change -inability to walk Moderate Active Brooklyn Jose Results Date Name Value Unit Range Flag Description External Other: Patient ameya al update - Email Push, formerly [facility] ... PAT E-MAIL [email or web address] patient's e-mail address External Other: Patient ameya magallon update - [facility]Status, [facility] ... PATPORTALPIN Active This faustina l be used to establish a PIN number for patients to register in the Patient Portal. Office Visit: Office Visit:r m 8 VAPE_USE Never Tobacco smok ing status Chart Maintenance: Updated H H labs 01/25/23 LYMPHS % 30.7 % Lymphocytes/ 100 leukocytes in Blood by Automated count PMN % 47.0 % Neutrophils/1 00 leukocytes in Blood by Automated count Chart Maintenance: Lab updat e 02/09/23 PLATELETS 259 10*3/mm3 Platelets [#/volume] in Blood by Automated count HCT 29.4 % Hematocrit [V olume Fraction] of Blood by Automated count HGB 9.1 g/dL Hemoglobin [Mass/volume] in Blood RBC 3.54 10*6/mm3 Erythrocytes [#/volume] in Blood by Automated count WBC 5.2 10*3/mm3 Leukocytes [#/volume] in Blood by Automated count BILI TOTAL 0.3 mg/dL Bilirubin. total [Mass/volume] in Serum or Plasma SGOT (AST) 11 U/L Aspartate aminotransferase [Enzymatic activity/volume] in Serum or Plasma SGPT (ALT) 14 U/L Alanine aminotransferase [Enzymatic activity/volume] in Serum or Plasma ALK PHOS 89 U/L Alkaline bird sphatase [Enzymatic activity/volume] in Blood CREATININE 0.8 mg/dL Creatinine [Mass/volume] in Serum or Plasma BUN 12 mg/dL Urea nitrogen [Mass/volume] in Serum or Plasma CALCIUM 8.6 mg/dL Calcium [Moles/volume] in Serum or Plasma POTASSIUM 3.7 mmol/L Potassium [Moles/volume] in Serum or Plasma SODIUM 138 mmol/L Sodium [Moles/volume] in Serum or Plasma GLUCOSE SER 107 mg/dL Glucose [Mass/volume] in Serum or Plasma Office Visit: Office Visit: 8 ORALTOBACUSE Never Tobacco smoking status SMOK STATUS Never smoker Tobacco smoking status Office Visit: Office Visit:[facility] 9 MEDS REVIEW Done Documenta tion of current medications (procedure) Lab Report: SEDIMENTATION RA TE ESR 13 mm/h 0-30 Erythrocyte sedimentation rate by Westergren method Lab Report: C-REACTIVE PROTE IN CRP 0.80 mg/dL 0.00-0.50 H C reactive protein [Mass/volume] in Serum or Plasma Plan of Care Type Date Detail Pending order Sedimentation Ra te (ESR) Pending order C- reactive prot ein Pending order C- reactive prot ein Pending order Sedimentation Ra te (ESR) Pending order C- reactive prot ein Pending order Sedimentation Ra te (ESR) Pending order C- reactive prot ein Pending order Sedimentation Ra te (ESR) Pending order CMP Pending order CBC w/o Differen tial Pending order Sedimentation Ra te (ESR) Pending order CMP Pending order CBC w/o Differen tial Pending order Sedimentation Ra te (ESR) Pending order Continue IV anti biotics Pending order CMP Pending order CBC w/o Differen tial Pending order Sedimentation Ra te (ESR) Procedures Code Procedure Name Date Entry Date CPT-27020 Sedimentation Rate (ESR) 202 11/29/07 CPT-20333 C- reactive protein CPT-38757 C- reactive protein CPT-06264 Sedimentation Rate (ESR) 202 11/26/10 CPT-09637 CMP CPT-58516 CBC w/o Differential CPT-46150 Sedimentation Rate (ESR) 202 11/21/16 CPT-44386 CMP CPT-31152 CBC w/o Differential CPT-89281 Sedimentation Rate (ESR) 202 11/21/09 CPT-ca Continue IV antibiotics 2022 CPT-25110 CMP CPT-63428 CBC w/o Differential CPT-95959 Sedimentation Rate (ESR) 202 11/22/03 Vital Signs Date Name Value Unit Description BMI (Body Mass Index) 20.52 kg/m2 Bod y Mass Index (Ratio) Body Temperature 98 [degF] temperat ure E&M BP Diastolic 82 mm[Hg] blood pressu re, diastolic BP Systolic 118 mm[Hg] blood pressur e, systolic Heart Rate 60 /min pulse rate Height 67 [in_us] height E&M Respiratory Rate 16 /min respirat ory rate E&M Weight Measured 131 [lb_av] weight E& M Weight Measured 131 [lb_av] weight E& M Immunizations No information available. Advance Directives Directive Description Start Date HEALTHCARE SURROGATE POWER OF INTERACTIVE MEDIA DESIGNER LIVING WILL ON FILE
--- OUTSIDE RECORDS SUMMARY | 2025-07-08 12:12 | XMS_ITS | Referral Summary ---
Author Organization [employer] ([place], [place], [place], [place]) Address [address] [place] [address] Care Team Providers Care Bike Assembler Name Role Phone Unavailable Primary Care Provider Unavailabl e Social History Tobacco Use Types Packs/Day Years Used Date Smoking Tobacco: Never Assessed Comments Unknown Sex and Gender Information Value Date Recorded Sex Assigned at Not on file Legal Sex Female 4:12 PM CDT Gender Identity Not on file Sexual Orientation Not on file Plan of Treatment Not on file Insurance [facility] MEDIC[facility]VANTAGE
--- OUTSIDE RECORDS SUMMARY | 2025-07-08 12:12 | XMS_ITS | Encounter Summary ---
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, implants and grafts, initial encounter (HCC) Social History Tobacco Use Types Packs/Day Years Used Date Smoking Tobacco: Never Assessed Comments Unknown Sex and Gender Information Value Date Recorded Sex Assigned at Not on file Legal Sex Female 4:12 PM CDT Gender Identity Not on file Sexual Orientation Not on file documented as of this encounter Plan of Treatment Not on file documented as of this encounter Procedures Procedure Name Priority Date/Time Associated Diagnosis Comments [facility] DIFFERENTIAL, BODY FLUID Routine 12/17/2022 3:18 PM EDT Pain in right knee 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, implants and grafts, initial encounter (HCC) AFB CULTURE AND STAIN Routine 12/17/2022 3:18 PM EDT Pain in right knee 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, implants and grafts, initial encounter (HCC) FUNGUS CULTURE W/LEAH OR JUSTYNA INK Routine 12/17/2022 3:18 PM EDT Pain in right knee 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, implants and grafts, initial encounter (HCC) ANAEROBIC CULTURE, EXTENDED (P.ACNES) Routine 12/17/2022 3:18 PM EDT Pain in right knee 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, implants and grafts, initial encounter (HCC) BODY FLUID CRYSTALS Routine 12/17/2022 3 :18 PM EDT Pain in right knee 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, implants and grafts, initial encounter (HCC) BODY FLUID CULTURE + GRAM STAIN Routine 12/17/2022 3:18 PM EDT Pain in right knee 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, implants and grafts, initial encounter (HCC) BODY FLUID CELL COUNT WITH DIFFERENTIAL Routine 12/17/2022 3:18 PM EDT Pain in right knee 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, implants and grafts, initial encounter (HCC) documented in this encounter Results * DIFFERENTIAL, BODY FLUID (12/17/2022 3:18 PM EDT) Neutrophils Fluid 90 0 - 25 % 12/17/2022 8:03 PM EDT [facility] Monocytes Fluid 10 0 - 65 % 8:03 PM EDT [facility] Body Fluid SYNOVIAL PART / Unknown 12/17/2022 3:18 PM EDT 12/17/2022 7:59 PM EDT us Cameron Soto MD BODY FLUIDS AND STOOLS ORDERABLE S Final Result [facility] [address] [phone] * AFB Culture And Stain (12/17/2022 3:18 PM EDT) Result No Acid Fast Bacilli isolated at 6 weeks 01/29/2023 8:00 AM EDT [facility] AFB Smear No acid fast bacilli seen 01/29/2023 8:00 AM EDT [facility] Synovial Fluid STRUCTURE OF RIGHT KNEE REGION / Unknown 12/17/2022 3:18 PM EDT 12/18/2022 7:44 AM EDT us Cameron Soto MD MICROBIOLOGY - GENERAL ORDERABLE S Final Result Performing Organization Address City/[facility]/ZIP Co de Phone Number [facility] [address] [place] [address], [facility] [phone] * Anaerobic Culture, Extended (P.acnes) (12/17/2022 3:18 PM EDT) Result No anaerobic growth at 14 days. No Cutibacterium acnes (formerly Propionibacterium acnes) isolated 01/03/2023 7:23 AM EDT [facility] Synovial Fluid STRUCTURE OF RIGHT KNEE REGION / Unknown 12/17/2022 3:18 PM EDT 12/18/2022 7:44 AM EDT us Cameron Soto MD MICROBIOLOGY - GENERAL ORDERABLE S Final Result Performing Organization Address [facility] Co de Phone Number [facility] [address] [place] [address], [facility] [phone] * Fungus Culture W/LEAH Or Justyna Ink (12/17/2022 3:18 PM EDT) Result No fungus isolated at 6 weeks. 01/29/2023 8:00 AM EDT [facility] LEAH Prep No fungal elements seen 01/29/2023 8:00 AM EDT [facility] Synovial Fluid STRUCTURE OF RIGHT KNEE REGION / Unknown 12/17/2022 3:18 PM EDT 12/18/2022 7:44 AM EDT us Cameron Soto MD MICROBIOLOGY - GENERAL ORDERABLE S Final Result Performing Organization Address City/[facility]/ZIP Co de Phone Number [facility] [address] [place] [address], [facility] [phone] * Body Fluid Culture + Gram Stain (12/17/2022 3:18 PM EDT) Result No growth 12/21/2022 8:59 AM EDT [facility] Gram Stain Result Moderate WBCs 12/21/2022 8:59 AM EDT [facility] Gram Stain Result No organisms seen 12/21/2022 8:59 AM EDT [facility] Synovial Fluid STRUCTURE OF RIGHT KNEE REGION / Unknown 12/17/2022 3:18 PM EDT 12/18/2022 7:44 AM EDT Narrative [facility] - 12/21/2022 8:59 AM EDT us Cameron Soto MD MICROBIOLOGY - GENERAL ORDERABLE S Final Result [facility] [address] [phone] * Body fluid crystals (12/17/2022 3:18 PM EDT) BODY FLUID TYPE Synovial 8:00 PM EDT [facility] Ca Phos Sakina, UA Absent Absent 12/17/2022 8:00 PM EDT [facility] Monosodium Urate Absent Absent 12/17/2022 8:00 PM EDT [facility] Synovial Fluid SYNOVIAL PART / Unknown 12/17/2022 3:18 PM EDT 12/17/2022 7:59 PM EDT us Cameron Soto MD BODY FLUIDS AND STOOLS ORDERABLE S Final Result [facility] [address] [phone] * (ABNORMAL) Body fluid cell count with differential (12/17/2022 3:18 PM EDT) Appearance Cloudy(A) Clear 12/17/2022 8:03 PM EDT [facility] Color Yellow 12/17/2022 8:03 PM EDT [facility] BODY FLUID TYPE Synovial 8:03 PM EDT [facility] Auto WBC/Nucleated Cells BF 37,588 0 - 30 u/L 12/17/2022 8:03 PM EDT [facility] Comment: Please refer to specific WBC/Nucleated Cell Count Body Fluid reference ranges below: For Pleural: 0-1000 Peritoneal: 0-1000 Pericardial:0-1000 Synovial: 0-200 Auto RBC BF 9,000 0 - 30 u/L 12/17/2022 8:03 PM EDT [facility] Comment: Please refer to specific RBC Cell Count Body Fluid reference ranges below: Pleural: 0-10,000 Peritoneal: 0-10,000 Pericardial:0-10,000 Synovial:0-30 Body Fluid SYNOVIAL PART / Unknown 12/17/2022 3:18 PM EDT 12/17/2022 7:59 PM EDT Narrative [facility] - 12/17/2022 8:03 PM EDT There is normally no readily obtainable pleural, peritoneal and pericardial fluid, hence normal elements for these potential fluids are not defined. 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
--- OUTSIDE RECORDS SUMMARY | 2025-07-08 12:12 | XMS_ITS | Clinical Summary ---
Author Organization [employer] ([place], [place], [place], [place]) Address [address] [place] [address] Care Team Providers Care Airborne [employer] Systems Name Role Phone Unavailable Primary Care Provider Unavailabl e Social History Tobacco Use Types Packs/Day Years Used Date Smoking Tobacco: Never Assessed Comments Unknown Sex and Gender Information Value Date Recorded Sex Assigned at Not on file Legal Sex Female 4:12 PM CDT Gender Identity Not on file Sexual Orientation Not on file Plan of Treatment Health Maintenance Due Date Last Done Comments Depression Screening (12+) 1948 Tobacco Cessation Counseling and Screening (12+) 1947 DTAP/TDAP/TD VACCINES (1 - Tdap) 1955 Shingles Vaccine (Zoster) (1 of 2) 1986 Respiratory Syncytial Virus (RSV) Adult or (1 - 1-dose 75+ series) 2011 Pneumococcal 50+ years (2 of 2 - PCV) 08/18/2021 08/18/2020 Falls Risk Screening 09/19/2024 COVID-19 VACCINE (6 - 2024-2 6 season) 2025 08/05/2022, 12/30/2021, 06/22/2021, Additional history exists Influenza Vaccine (#1) 2025 08/18/2020 Insurance [facility] MEDICARE ADVANTAGE
--- OUTSIDE RECORDS SUMMARY | 2025-07-08 12:12 | XMS_ITS | Patient Health Record ---
Author Organization [facility] Address [address] [place] [address] Care Team Providers Care Counter Sales Person Name Role Phone Unknown, PCP [facility], [phone] Unavailable Zeny Suzette Unavailable [phone] Rose Sibley Unavailable [phone] Allergies No Known Allergies Reason For Referral No Information Medications Medication SIG (Take, Route, Frequency, Duration) Notes Start Date End Date Status Methenamine Hippurate 1 GM Oral Active Celecoxib 200 MG Oral Act hugo Metoprolol Succinate ER 50 MG TAKE 1 TABLET BY MOUTH ONCE DAILY Oral Active Methenamine Hippurate 1 GM TAKE 1 TABLET BY MOUTH TWICE DAILY FOR UTI PREVENTION. START AFTER MACROBID COMPLETED Oral; Duration: 90 Days Active Social History Tobacco Use: Social History Observation Description Date Details (start date - stop date) Never Smoker NA - NA Tobacco Control (Standard) Question Answer Notes Tobacco use: Nonsmoker AUDIT-C (Standard) Question Answer Notes Did you have a drink containing alcohol in the p ast year? 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 [address] [place] [address] 03/21/2025 Suzette Moura Impacted cerumen of both ears H61.23 ; Hard of hearing, bilateral H91.93 ; Elevated blood pressure reading R03.0 ; Hypertension I10 and Hearing loss H91.90 [facility] [address] [place] [address] 04/03/2025 Rose Sibley Hypertension I10 ; Impacted cerumen of left ear H61.22 ; Hearing difficulty H91.90 and Underweight R63.6 Assessments Encounter Date Diagnosis (ICD Code) Assessment Notes Treatment Notes Treatment Clinical Notes Section Notes 03/21/2025 Impacted cerumen of both ears (ICD-10 - H61.23) Visit summary given to and discussed with patient and/or parent who verbalizes understanding and agreement with plan of care. Thank you for your visit. Please look for the satisfaction survey that you will receive via email. We look forward to receiving your feedback regarding your experience at [facility]. Use over the counter Debrox as directed for the next two weeks in the left ear. If still having trouble hearing and feeling clogged up in left ear, schedule follow up appoitment to see a provider here at clinic for follow up and possible ear wax removal of left ear. Go to the emergency room for any emergent type symptoms. 03/21/2025 Hard of hearing, bilateral (ICD-10 - H91.93) 04/03/2025 Hypertension (ICD-10 - I10) 04/03/2025 Impacted cerumen of left ear (ICD-10 - H61.22) 04/03/2025 Hearing difficulty (ICD-10 - H91.90) 04/03/2025 Underweight (ICD-10 - R63.6) 03/21/2025 Elevated blood pressure reading (ICD-10 - R03.0) 03/21/2025 Hypertension (ICD-10 - I10) 03/21/2025 Hearing loss (ICD-10 - H91.90) 03/21/2025 Other 04/03/2025 Other Add ICD code associated with Impacted Cerumen with specific laterality. If patient is prompt pay, remove SENIOR ELECTRICAL ESTIMATOR and add one of the following CPTs: 67307 if irrigation only was used or 40261 if instrumentation only or instrumentation and irrigation used. Plan Of Treatment No Information Insurance Providers Payer Name Payer Address Payer Phone Subscriber Number Group Number Insured Name Patient Relationship to Insured Coverage Start Date Coverage End Date [facility] [employer] [address] [address] [place] [address] [id number] Cary Barrera Self - patient is the insured Medical (General) History Medical History History ICD Code Hypertension I10 Hearing loss H91.90 Surgical History Surgery Date(Month/Year) hyst rectaseal right knee 2021 right knee infected 2021 right knee 2021 tubal Hospitalization History Reason Date(Month/Year) natural births
--- OUTSIDE RECORDS SUMMARY | 2025-07-08 12:13 | XMS_ITS | Encounter Summary ---
Author Organization [employer] ([place], [place], [place], [place]) Address [address] [place] [address] Care Team Providers Care Benefit Authorizer Name Role Phone Unavailable Primary Care Provider Unavailabl e Encounter Details Date Type Department Care Team (Late st Contact Info) Description 10/26/2022 Lab Requisition [facility] [address] [place] [place] [address] Cameron Soto MD [address] [facility] 2nd [place] [address] Effusion, right knee Social History Tobacco Use Types Packs/Day Years [...] Procedure Name Priority Date/Time Associated Diagnosis Comments SJ DIFFERENTIAL, BODY FLUID Routine 10/26/2022 1:00 PM EST Effusion, right knee AFB CULTURE AND STAIN Routine 10/26/2022 1:00 PM EST Effusion, right knee FUNGUS CULTURE W/LEAH OR JUSTYNA INK Routine 10/26/2022 1:00 PM EST Effusion, right knee SPIN/CONCENTRATION CHARGE Routine 10/26/2022 1:00 PM EST Effusion, right knee ANAEROBIC CULTURE Routine 10/26/2022 1:0 0 PM EST Effusion, right knee BODY FLUID CRYSTALS Routine 10/26/2022 1 :00 PM EST Effusion, right knee BODY FLUID CULTURE + GRAM STAIN Routine 10/26/2022 1:00 PM EST Effusion, right knee BODY FLUID CELL COUNT WITH DIFFERENTIAL Routine 10/26/2022 1:00 PM EST Effusion, right knee documented in this encounter Results * SPIN/CONCENTRATION CHARGE (10/26/2022 1:00 PM EST) Concentration charged Done 11/11/2022 11:36 AM EST [facility] Synovial Fluid STRUCTURE OF RIGHT KNEE REGION / Unknown 10/26/2022 1:00 PM EST 10/26/2022 8:16 PM EST us Cameron Soto MD MICROBIOLOGY - GENERAL ORDERABLE S Final Result Performing Organization Address [facility]/ZIP Co de Phone Number [facility] [address] [phone] * DIFFERENTIAL, BODY FLUID (10/26/2022 1:00 PM EST) Neutrophils Fluid 82 0 - 25 % 10/26/2022 8:25 PM EST [facility] Lymphocytes Fluid 11 % 10/26/2022 8:25 PM EST [facility] Monocytes Fluid 7 0 - 65 % 8:25 PM EST [facility] Synovial Fluid STRUCTURE OF RIGHT KNEE REGION / Unknown 10/26/2022 1:00 PM EST 10/26/2022 8:16 PM EST us Cameron Soto MD BODY FLUIDS AND STOOLS ORDERABLE S Final Result [facility] [address] [phone] * Body fluid crystals (10/26/2022 1:00 PM EST) BODY FLUID TYPE Synovial 8:23 PM EST [facility] Ca Phos Sakina, UA Absent Absent 10/26/2022 8:23 PM EST [facility] Monosodium Urate Absent Absent 10/26/2022 8:23 PM EST [facility] Synovial Fluid STRUCTURE OF RIGHT KNEE REGION / Unknown 10/26/2022 1:00 PM EST 10/26/2022 8:16 PM EST us Cameron Soto MD BODY FLUIDS AND STOOLS ORDERABLE S Final Result Performing Organization Address City/[facility]/ZIP Co de Phone Number [facility] [address] [place] [address], [facility] [[email or web address]] [phone] * AFB Culture And Stain (10/26/2022 1:00 PM EST) Result No Acid Fast Bacilli isolated at 6 weeks 12/20/2022 3:12 PM EDT [facility] AFB Smear No acid fast bacilli seen 12/20/2022 3:12 PM EDT [facility] Synovial Fluid STRUCTURE OF RIGHT KNEE REGION / Unknown 10/26/2022 1:00 PM EST 10/26/2022 8:16 PM EST us Cameron Soto MD MICROBIOLOGY - GENERAL ORDERABLE S Final Result Performing Organization Address [facility] Co de Phone Number [facility] [address] [place] [address], [facility] [[email or web address]] [phone] * Fungus Culture W/LEAH Or Justyna Ink (10/26/2022 1:00 PM EST) Result No fungus isolated at 6 weeks. 12/07/2022 10:00 PM EDT [facility] LEAH Prep No fungal elements seen 12/07/2022 10:00 PM EDT [facility] Synovial Fluid STRUCTURE OF RIGHT KNEE REGION / Unknown 10/26/2022 1:00 PM EST 10/26/2022 8:16 PM EST us Cameron Soto MD MICROBIOLOGY - GENERAL ORDERABLE S Final Result [facility] [address] [phone] * Body fluid cell count with differential (10/26/2022 1:00 PM EST) BODY FLUID TYPE Synovial 10/26/2022 8:25 PM EST [facility] Auto WBC/Nucleated Cells BF 25,296 u/L 10/26/2022 8:25 PM EST [facility] Comment: Please refer to specific WBC/Nucleated Cell Count Body Fluid reference ranges below: For Pleural: 0-1000 Peritoneal: 0-1000 Pericardial:0-1000 Synovial: 0-200 Auto RBC BF 108,000 u/L 10/26/2022 8:25 PM EST [facility] Comment: Please refer to specific RBC Cell Count Body Fluid reference ranges below: Pleural: 0-10,000 Peritoneal: 0-10,000 Pericardial:0-10,000 Synovial:0-30 Synovial Fluid STRUCTURE OF RIGHT KNEE REGION / Unknown 10/26/2022 1:00 PM EST 10/26/2022 8:16 PM EST Narrative [facility] - 10/26/2022 8:25 PM EST There is normally no readily obtainable pleural, peritoneal and pericardial fluid, hence normal elements for these potential fluids are not defined. us Cameron Soto MD BODY FLUIDS AND STOOLS ORDERABLE S Final Result Performing Organization Address [facility]/ZIP Co de Phone Number [facility] [address] [phone] * Body Fluid Culture + Gram Stain (10/26/2022 1:00 PM EST) Result No growth 10/30/2022 7:50 AM EST [facility] Gram Stain Result No organisms seen 10/30/2022 7:50 AM EST [facility] Gram Stain Result Many WBCs 10/30/2022 7:50 AM EST [facility] Synovial Fluid STRUCTURE OF RIGHT KNEE REGION / Unknown 10/26/2022 1:00 PM EST 10/26/2022 8:16 PM EST us Cameron Soto MD MICROBIOLOGY - GENERAL ORDERABLE S Final Result Performing Organization Address [facility]/ZIP Co de Phone Number [facility] [address] [phone] * Anaerobic Culture (10/26/2022 1:00 PM EST) Result No anaerobes isolated in 5 days 11/01/2022 7:01 AM EST [facility] Synovial Fluid STRUCTURE OF RIGHT KNEE REGION / Unknown 10/26/2022 1:00 PM EST 10/26/2022 8:16 PM EST us Cameron Soto MD MICROBIOLOGY - GENERAL ORDERABLE S Final Result Performing Organization Address [facility]/ZIP Co de Phone Number [facility] [address] [phone] documented in this encounter Visit Diagnoses Diagnosis Effusion, right knee documented in this encounter
--- OUTSIDE RECORDS SUMMARY | 2025-07-08 12:13 | XMS_ITS | Encounter Summary ---
Author Organization [employer] ([place], [place], [place], [place]) Address [address] [place] [address] Care Team Providers Care Industrial Hygiene Engineer Name Role Phone Unavailable Primary Care Provider Unavailabl e Encounter Details Date Type Department Care Team (Late st Contact Info) Description 10/26/2022 Outside Orders [address] [address] Sravanthi Kim Social History Tobacco Use Types Packs/Day Years Used Date Smoking Tobacco: Never Assessed Comments Unknown Sex and Gender Information Value Date Recorded Sex Assigned at Not on file Legal Sex Female 4:12 PM CDT Gender Identity Not on file Sexual Orientation Not on file documented as of this encounter Plan of Treatment Not on file documented as of this encounter Visit Diagnoses Not on filedocumented in this encounter
== END 2025-07-06 23:59 ==
LOC: LAB.DROPOF 07-08 12:09
PROVIDERS: PCP Emergency Medicine; Visit Provider Student in an Organized Health Care Education/Training Program
DX: R53.1 Weakness (principal)
CPT/HCPCS: 87086; 87088